=== PATIENT | female | born 1985 | race African-American/Black ===

== ENCOUNTER 2017-12-20 02:24 | Inpatient (IN) | payer OTHER ==
[~2017-12-20] VITALS: Ht 165.1 cm; Wt 144.2 kg
--- NOTE | ~2017-12-20 | S ---
[facility] [address] [place] [address] SURGICAL PATH RPT PROCEDURE Name: PRUDENCE MONTALVO Room #: 431-P ADM IN M.R.#: [id number] Admission: 12/20/17 Date of : 83 Discharge: Report #: [id number] Path Case #: [id number] PATHOLOGY REPORT DRAFT COLLECTION DATE: 12/21/2017 RECEIVED DATE: 12/21/2017 SPECIMEN(S) RECEIVED: A.Gallbladder with stones
--- NOTE | ~2017-12-20 | HC ---
[facility] [place] [address] CONSULTATION Name: PRUDENCE MONTALVO Room #: 431-P ADM IN M.R.#: [id number] Admission: 12/20/17 Attend Phys: Corin Sparrow Discharge: Date of : 83 Report #: [id number] THIS REPORT FOR: //name// CC: Corin Elaine DATE OF SERVICE: 12/20/2017 REFERRING PROVIDER: Dr. Sparrow. REASON FOR CONSULT: Abdominal pain. HISTORY OF PRESENT ILLNESS: The patient is a 32-year-old female who presents with a 4-month history of progressively worsening right upper quadrant abdominal pain and postprandial nausea. The patient's symptoms worsened last evening and were accompanied with emesis and as such, she presented for evaluation. The patient has a known history of gallstones and workup in the Emergency Room in the form of laboratories was obtained. The patient's labs were all within normal limits and as such, she has been admitted for intractable pain and nausea and we are asked to evaluate from a surgical standpoint. PAST MEDICAL HISTORY: Asthma and environmental allergens. HOME MEDICATIONS: Maty, Nasacort, Symbicort, Zofran p.r.n., and Avery p.r.n. ALLERGIES: Interestingly are to HYDROCODONE, WHICH CAUSES ITCHING, even though she is currently taking hydrocodone at home. FAMILY HISTORY: Reviewed and noncontributory. SOCIAL HISTORY: The patient does not utilize tobacco or illicit drugs, does drink alcohol only on special occasions and never to excess. REVIEW OF SYSTEMS: GENERAL: The patient denies nocturnal fevers or chills. HEENT: No change in vision, change in hearing. NECK: No swelling or difficulty swallowing. HEART: No chest pain, palpitations. LUNGS: No cough or shortness of breath. ABDOMEN: Abdominal pain with nausea and vomiting. GENITOURINARY: No dysuria or hematuria. ENDOCRINE: No polyuria, polydipsia. HEMATOLOGIC: No history of bleeding or easy bruising. EXTREMITIES: No history of weakness or limited range of motion. NEUROLOGIC: No history of syncope or near syncopal episodes. [facility] [address] [place] [address] CONSULTATION Name: JAYDA JOHNSONPRUDENCE Room #: 431-P [facility] IN .R.#: [id number] Admission: 12/20/17 Attend Phys: Corin Sparrow Discharge: Date of : 83 Report #: [id number] SKIN AND INTEGUMENT: No history of abnormal lesions or moles. PSYCHIATRIC: No history of anxiety or depression. PHYSICAL EXAMINATION: VITAL SIGNS: Temperature 99.0, pulse 79, respirations 16, blood pressure 117/67. She is 5 feet 5 inches tall and weighs 318 pounds. GENERAL: Alert and oriented, in no acute distress. HEENT: Normocephalic, atraumatic. Pupils equal, round, reactive to light. NECK: Supple, without lymphadenopathy. Trachea midline. HEART: Regular rate and rhythm. LUNGS: Clear to auscultation bilaterally. ABDOMEN: Obese, soft, nondistended. Minimal tenderness to palpation, more diffusely than point tenderness. No guarding, rebound or peritoneal signs or symptoms. GENITOURINARY: Normal external female genitalia. EXTREMITIES: No clubbing, cyanosis or edema. NEUROLOGIC: Cranial nerves 2-12 are grossly intact. PSYCHIATRIC: Normal mood and affect. SKIN AND INTEGUMENT: No abnormal lesions or moles. LABORATORY AND X-RAY DATA: CBC shows white blood cell count of 9.1 thousand; hemoglobin 10.4; platelets 357,000. Creatinine is 0.8. Liver function enzymes normal. Urinalysis is negative. ASSESSMENT AND PLAN: A 32-year-old obese female with symptomatic cholelithiasis. The patient is scheduled to get an ultrasound this morning, but we know she has evidence of cholelithiasis from a prior workup. As her liver function numbers and white blood cell count are normal, but still in the face of ongoing symptoms, we will plan to proceed at the first available opportunity for laparoscopic cholecystectomy with cholangiogram. Risks, benefits and alternatives of that procedure have been discussed with the patient in detail and she agrees to proceed as outlined. We sincerely appreciate this consult. We will follow along and leave any further recommendations in the patient's chart as appropriate. <ELECTRONICALLY SIGNED> By: Catrachito Domingo MD, FACS 12/21/17 0821 [id number] Catrachito Domingo MD, FACS /nt
--- NOTE | ~2017-12-20 | O ---
[facility] [place] [address] OPERATIVE REPORT Name: JAYDA JOHNSONPRUDENCE Room #: 431-P [facility] IN M.R.#: [id number] Admission: 12/20/17 Attend Phys: Corin Sparrow Discharge: 12/22/17 Date of : 83 Report #: [id number] THIS REPORT FOR: //name// CC: Corin Hess SURGEON: Mark Wayne M.D. BAR MANAGER: Yovani Baugh D.O. PREOPERATIVE DIAGNOSES: 1. Symptomatic cholelithiasis. 2. Super morbid obesity. 3. Asthma. POSTOPERATIVE DIAGNOSES: 1. Symptomatic cholelithiasis. 2. Super morbid obesity. 3. Asthma. PROCEDURE: Laparoscopic cholecystectomy with intraoperative cholangiogram. ANESTHESIA: General endotracheal anesthesia and local anesthetic. ESTIMATED BLOOD LOSS: 10 mL. SPECIMEN: Gallbladder. COMPLICATIONS: None appreciated. INDICATIONS FOR PROCEDURE: This is a super-morbid obese female patient who has had difficulty with biliary colic symptoms and known gallstones over the past 4 months. She has had progressively worsening symptoms and was seen in the [place] [facility] where she underwent imaging studies showing cholelithiasis. The patient's liver function tests are within normal limits. She presents now for laparoscopic cholecystectomy with intraoperative cholangiogram. OPERATIVE FINDINGS: Upon entrance into the abdominal cavity, the patient had an enlarged liver without clair steatohepatitis. Her stomach, colon and small bowel in the surrounding area appeared otherwise normal. The gallbladder did not appear to be acutely inflamed. The critical view consisting of cystic artery, cystic duct and lower edge of the gallbladder forming a window through which the liver was visible was seen prior to clipping the cystic duct for cholangiogram. The patient had a normal appearing cholangiogram with filling of the biliary tree and free flow of contrast into the duodenal sweep. [facility] [address] [place] [address] OPERATIVE REPORT Name: JAYDAPRUDENCE ELLINGTON Room #: 431-P [facility] IN M.R.#: [id number] Admission: 12/20/17 Attend Phys: Corin Sparrow Discharge: 12/22/17 Date of : 83 Report #: [id number] note, the patient had a very intrahepatic gallbladder with a rim of liver surrounding the dome of the gallbladder, approximately 1.5 cm. After removal of the gallbladder from the abdominal cavity, it was opened on the backtable. Cholesterolosis was seen within the wall of the gallbladder as well as an olive sized and shaped nonpigmented gallstone. At the conclusion of the operation, sponge, needle, and instrument counts were correct. No significant intra-abdominal pathology was seen. There was no evidence for iatrogenic injury. DESCRIPTION OF PROCEDURE IN DETAIL: After the risks, benefits and expectations of the operation were discussed in detail with the patient, informed consent was obtained. The patient was identified in the preoperative holding area. She was given IV antibiotics as documented in the chart in line with the SCIP metrics. The patient was then taken to the operating room and she was placed in the supine position. SCDs were placed on the patient's bilateral lower extremities and pneumatic compression was initiated. The patient was then given IV sedation and she was intubated without incident. Her abdomen was prepped and draped in the standard sterile fashion. A timeout was performed to identify the correct patient and procedure. Local anesthetic was infiltrated into the skin and subcutaneous tissue supraumbilically where a curvilinear incision was made with a #15 blade scalpel. Dissection was carried down to the fascia. An 11 mm Visiport was placed intraperitoneally with a 0-degree angled laparoscope. Pneumoperitoneum was then achieved with insufflation of carbon dioxide to 15 mmHg. A 30-degree angled laparoscope was inserted. The patient was placed in reverse Trendelenburg position, rotated to her left. A subxiphoid 5 mm and right subcostal 5 mm ports x 2 were placed under direct visualization after local anesthetic was infiltrated into the skin and subcutaneous tissue and appropriately sized incisions were made. Operative findings are noted above. The gallbladder was retracted in a cephalad direction. The gallbladder peritoneum was then scored medially and laterally with the ultrasonic dissector. Dissection was carried out around the cystic artery and cystic duct to identify both structures as the only 2 structures entering the gallbladder. A clip was then placed on the cystic duct at its junction with the neck of the gallbladder. A ductotomy was created. A cholangiocatheter was inserted and cholangiogram performed with findings as noted above. The cholangiocatheter was then removed and the cystic duct was triply clipped and divided with the ultrasonic dissector with a good seal leaving 3 clips on the cystic duct stump. The cystic artery was divided with the ultrasound dissector with good hemostasis as well. The gallbladder was then dissected out of the liver bed without entrance into the gallbladder or liver bed. The 1.5 cm rim of liver surrounding the dome of the gallbladder was divided to facilitate removal of the gallbladder. The liver bed was then cauterized for hemostasis. A piece of 8 cm x 4 cm Surgicel was then placed within the liver bed to ensure hemostasis. [address] [address] OPERATIVE REPORT Name: PRUDENCE MONTALVO Room #: 431-P DIS IN M.R.#: [id number] Admission: 12/20/17 Attend Phys: Corin Sparrow Discharge: 12/22/17 Date of : 83 Report #: [id number] The Hemoclips were secure. The gallbladder was then removed through the supraumbilical port site with mild stretching the fascia. A [id number] 0 PDS suture was placed to close the defect. The suture was tied under direct visualization to ensure no incorporation of intra-abdominal content after ensuring hemostasis within the liver bed and no other significant pathology. The abdominal cavity was desufflated and the ports were removed. Interrupted subcuticular 4-0 Monocryl sutures and Dermabond used to close the skin incisions. The patient tolerated the procedure well. The patient was awakened, extubated, and taken to recovery room in stable condition with no apparent intraoperative complications. <ELECTRONICALLY SIGNED> By: Mark Wayne MD, FACS 12/24/17 1345 [id number] Mark Wayne MD, FACS /nt
[2017-12-20 02:47] VITALS: BP 188/121
[2017-12-20] MEDS ORDERED: NASACORT10.8 ML NASAL (02:52)
[2017-12-20] MEDS ORDERED: ALLEGRA ALLERG180 MG PO (02:52)
[2017-12-20] MEDS ORDERED: SYMBICORT80 MCG/4.1 INH (02:52)
[2017-12-20] MEDS ORDERED: NORCO 5-325 TA1 EACH PO (02:53)
[2017-12-20] MEDS ORDERED: ONDANSETRON HCL4 M2 PO (02:53)
[2017-12-20 03:20] LABS: URINE BILIRUBIN NEGATIVE (Negative); URINE BLOOD 3+ (Negative); URINE CLARITY CLEAR; URINE COLOR YELLOW; URINE GLUCOSE-RANDOM* NEGATIVE (Negative); URINE KETONES NEGATIVE (Negative); URINE LEUKOCYTES-REFLEX NEGATIVE (Negative); URINE NITRITE-REFLEX NEGATIVE (Negative); URINE PROTEIN (DIPSTICK) 1+ (Negative); URINE SPECIFIC GRAVITY 1.025 (1.005-1.035)
[2017-12-20 03:22] LABS: CALCIUM 8.7 mg/dL (8.5-10.1); CREATININE 0.8 mg/dL (0.6-1.0); POTASSIUM 4.3 mmol/L (3.5-5.1)
[2017-12-20 03:28] LABS: ALBUMIN 3.3 g/dL (3.4-5.0); TOTAL BILIRUBIN 0.2 mg/dL (<0.1-1.0); TOTAL PROTEIN 7.6 g/dL (6.4-8.2)
[2017-12-20 03:45] LABS: BACTERIA-REFLEX None Seen /HPF (None Seen); CASTS None Seen /LPF (None Seen); CRYSTALS None Seen /LPF (None Seen); MUCUS None Seen strn/LPF (None Seen); SQUAMOUS 0-3 Few /LPF (0-3); URINE RBC >20 Many /HPF (0-2); URINE WBC-REFLEX 0-5 Rare /HPF (0-5); WBC CLUMPS Rare (None Seen)
[2017-12-20 03:49] LABS: ABSOLUTE NEUTROPHILS 6.3 thou/uL (1.4-8.2); BASOPHILS 0.4 % (0.0-2.0); EOSINOPHILS 1.4 % (0.0-3.0); HEMOGLOBIN 10.4 gm/dL (12.0-15.0); LYMPHOCYTES 21.3 % (24.0-44.0); MCH 19.6 pg (26.0-34.0); MCHC 31.4 g/dL (28.0-37.0); MCV 62.3 fL (80.0-100.0); MONOCYTES 7.5 % (1.0-8.0); PLATELET COUNT 357 thou/uL (150-400); POLYS 69.4 % (36.0-66.0); RBC 5.31 mil/uL (4.20-5.00); WBC 9.1 thou/uL (4.0-11.0)
[2017-12-20 04:23] VITALS: BP 128/68
[2017-12-20 04:49] VITALS: BP 120/54
[2017-12-20 06:29] LABS: ANISOCYTOSIS 1+; HYPOCHROMASIA 2+; MICROCYTES 3+; POLYCHROMASIA 1+
[2017-12-20 07:45] VITALS: BP 117/67
[2017-12-20 16:32] VITALS: BP 130/79
[2017-12-20 20:10] VITALS: BP 146/78
[2017-12-21 04:23] VITALS: BP 136/66
[2017-12-21] MEDS ORDERED: TRAMADOL 50 MG50 MG PO (15:12)
[2017-12-21] MEDS ORDERED: SENNA-S TABLET1 EACH PO (15:12)
[2017-12-21 19:08] VITALS: BP 146/78
[2017-12-22 03:41] LABS: CALCIUM 8.2 mg/dL (8.5-10.1); CREATININE 0.7 mg/dL (0.6-1.0); POTASSIUM 4.1 mmol/L (3.5-5.1)
[2017-12-22 03:49] VITALS: BP 138/79
[2017-12-22 07:56] VITALS: BP 124/60
[2017-12-22 09:34] VITALS: BP 124/60
== END 2017-12-22 10:00 | disposition home or self-care (01) | DRG 418 ==
LOC: ER 02:24 → EROBS 04:00 → 4E 04:00
PROVIDERS: Emergency Medicine; Surgery
DX: K80.70 Calculus of gallbladder and bile duct without cholecystitis without obstruction (principal); Z68.43 Body mass index [BMI] 50.0-59.9, adult; E66.01 Morbid (severe) obesity due to excess calories; D64.9 Anemia, unspecified; J45.909 Unspecified asthma, uncomplicated; Z79.899 Other long term (current) drug therapy; Z88.6 Allergy status to analgesic agent; Z83.3 Family history of diabetes mellitus; Z82.49 Family history of ischemic heart disease and other diseases of the circulatory system
CPT/HCPCS: 10084; 50010; 50249; 50411; 50555; 50558; 50962; 51975; 52265; 53307; 54022; 54105; 54118; 55245; 55317; 56462; 56525; 56526; 56639